=== PATIENT | male | born 1950 | race Caucasian/White ===

== ENCOUNTER 2019-11-08 19:33 | Emergency (ER) | payer OTHER ==
[2019-11-08] MEDS ORDERED: KETOROLAC TROMETHAMINE INJ 30 MG/ML VIAL IM ONE (19:44)
[2019-11-08 20:11] VITALS: TEMP 98.4
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
[2019-11-08] MEDS ORDERED: ONDANSETRON INJ 4 MG/2 ML VIAL IV ONE (20:46)
[2019-11-08] MEDS ORDERED: fentaNYL CITRATE INJ 50 MCG/ML 2 ML AMP IV ONE (20:47)
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
[2019-11-08] MEDS ORDERED: NEOMYCIN-BACITRACIN-POLYMYXIN 0.9 GM UD TOP ONE ×2 (21:27→21:32)
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
[2019-11-08 21:49] VITALS: O2SAT 97
[2019-11-08 22:07] VITALS: BP 145/58
== END 2019-11-08 22:02 | disposition home or self-care (01) ==
LOC: ER 19:33
DX: S00.91XA Abrasion of unspecified part of head, initial encounter (principal); S60.812A Abrasion of left wrist, initial encounter; T14.8XXA Other injury of unspecified body region, initial encounter; F10.129 Alcohol abuse with intoxication, unspecified; R51 Headache; M54.2 Cervicalgia; M25.551 Pain in right hip; M16.11 Unilateral primary osteoarthritis, right hip; M47.812 Spondylosis without myelopathy or radiculopathy, cervical region; I10 Essential (primary) hypertension; E11.9 Type 2 diabetes mellitus without complications; Z79.4 Long term (current) use of insulin; V49.49XA Driver injured in collision with other motor vehicles in traffic accident, initial encounter; Y92.410 Unspecified street and highway as the place of occurrence of the external cause
CPT/HCPCS: 70450; 72125; 72170; 80053; 80320; 81001; 85025; J1885; J2405; J3010